=== PATIENT | female | born 1980 | race Caucasian/White ===

== ENCOUNTER 2016-07-08 17:40 | Emergency (ER) | payer MEDICAID, OTHER ==
[~2016-07-08] VITALS: Ht 160 cm; Wt 88.5 kg
[~2016-07-08 17:40] MED LIST: BENT20TA PO; CIPR-9 PO; METR-1 PO; ZOFR4TAB PO
[2016-07-08 17:42] VITALS: BP 133/70; PULSE 90; RESP 18; TEMP 97.9; O2SAT 97
[2016-07-08] MEDS ORDERED: FLUT50SP EACH NARE (18:32)
--- NOTE | 2016-07-08 18:32 | PD ---
HPI Chief Complaint: ENT Complaint Time Seen by Provider: 18:28 Travel History International Travel<30 days: No Contact w/Intl Traveler<30days: No Traveled to known affect area: No History of Present Illness HPI Patient is a 35-year-old female who presented to emergency department for evaluation of left ear pain "popping" sensation. Patient states she's had nasal congestion for the last 2 days as well. She denies any fever, chills, nausea, vomiting, headache, chest pain or shortness of breath. Patient states that she had a call out of work today because her hearing was muffled. She denies any significant past medical history. [facility] Past Medical History Medical History: Denies Significant Hx Diminished Hearing: No : 2 Para: 2 Tubal Ligation: Yes Past Surgical History Gynecologic Surgery: Yes Social History Alcohol Use: Yes (rarely) Tobacco Use: Yes (1/2 ppd) Substance Use: Yes (marijuana) Allergies-Medications (Allergen,Severity, Reaction): Coded Allergies: No Known Allergies (Verified , 07/08/16) Reported Meds & Prescriptions Reported Meds & Active Scripts Active Zofran (Ondansetron HCl) 4 Mg Tab 4 Mg PO Q6HR PRN Cipro (Ciprofloxacin HCl) 500 Mg Tab 500 Mg PO BID 10 Days Flagyl (Metronidazole) 500 Mg Tab 500 Mg PO BID 10 Days Bentyl (Dicyclomine HCl) 20 Mg Tab 20 Mg PO TID PRN Review of Systems Except as stated in HPI: all other systems reviewed are Neg HENT: Positive: Congestion, Earache Physical Exam Narrative GENERAL: Well-nourished, well-developed patient. SKIN: Warm and dry. HEAD: Normocephalic. EYES: No scleral icterus. No injection or drainage. EARS: Bilateral pinnae and external canals appear within normal limits. Bilateral tympanic membranes without erythema, dullness or perforation. ENT: Mucosa pink and moist. No erythema or exudates. No uvular edema. No uvular , palatal, or tonsillar deviation. Airway patent. Nasal turbinates appear normal without nasal blood, purulent drainage or septal hematoma. NECK: Supple, trachea midline. No JVD or lymphadenopathy. CARDIOVASCULAR: Regular rate and rhythm without murmurs, gallops, or rubs. RESPIRATORY: Breath sounds equal bilaterally. No accessory muscle use. GASTROINTESTINAL: Abdomen soft, non-tender, nondistended. MUSCULOSKELETAL: No cyanosis, or edema. BACK: Nontender without obvious deformity. No CVA tenderness. Data Data Last Documented VS Vital Signs Date Time Temp Pulse Resp B/P Pulse Ox O2 Delivery O2 Flow Rate FiO2 07/08/16 17:42 97.9 90 18 133/70 97 Room Air MDM Medical Decision Making Medical Screen Exam Complete: Yes Emergency Medical Condition: Yes Interpretation(s) Vital Signs Date Time Temp Pulse Resp B/P Pulse Ox O2 Delivery O2 Flow Rate FiO2 07/08/16 17:42 97.9 90 18 133/70 97 Room Air Differential Diagnosis Otitis media versus otitis externa versus effusion versus viral URI Narrative Course Patient is a 35-year-old female who presented to the emergency department for evaluation of left ear pain and popping. Symptoms started approximately 2-3 days ago and are accompanied by nasal congestion. Physical examination is unremarkable. Patient was encouraged to trial [id number] Sudafed or similar agent for the nasal congestion. She will be provided with a prescription for fluticasone nasal spray. She is encouraged to follow up with primary care. She is encouraged to return to emergency department for any new or worsening symptoms. Patient is stable for discharge. Diagnosis Primary Impression: Upper respiratory infection Qualified Code: J06.9 - Viral upper respiratory tract infection Referrals: Primary Care Physician Patient Instructions: General Instructions, Upper Respiratory Infection (ED) Additional Instructions: Follow-up with your primary doctor Trial [id number] Sudafed or similar nasal decongestant as directed Return to emergency department for any new or worsening symptoms Med/Other Pt SpecificInfo: Prescription(s) given Scripts Fluticasone Nasal [place] 50 Mcg/Act [id number] Mcg EACH NARE BID #1 BOTTLE Ref 0 50 mcg/spray Prov:Judith Ramos 07/08/16 Disposition: 01 DISCHARGE HOME Condition: Stable Judith Ramos Jul 08, 2016 18:32
== END 2016-07-08 19:12 | disposition home or self-care (01) ==
LOC: NEPB 17:40
DX: J06.9 Acute upper respiratory infection, unspecified (principal); F17.210 Nicotine dependence, cigarettes, uncomplicated
CPT/HCPCS: 99283